=== PATIENT | female | born 1975 | race Caucasian/White ===

== ENCOUNTER → 2024-11-14 10:06 | Outpatient (REF) | payer BC, SELFPAY | LOC: WDC 10:06 | PROVIDERS: ATTENDING PHYSICIAN Family Medicine; REFERRING PHYSICIAN Specialist | DX: Z12.31 Encounter for screening mammogram for malignant neoplasm of breast (principal); Z01.818 Encounter for other preprocedural examination | CPT/HCPCS: 93005 ==

== ENCOUNTER 2025-01-19 06:24 | Day surgery (SDC) | payer BC, SELFPAY | END 2025-01-19 14:19 | disposition home or self-care (01) | LOC: GI 06:24 | PROVIDERS: ATTENDING PHYSICIAN Internal Medicine | DX: Z12.11 Encounter for screening for malignant neoplasm of colon (principal); D12.3 Benign neoplasm of transverse colon; D12.5 Benign neoplasm of sigmoid colon; K63.5 Polyp of colon; K63.89 Other specified diseases of intestine; K64.9 Unspecified hemorrhoids; Z86.0101 Personal history of adenomatous and serrated colon polyps | CPT/HCPCS: 45385; 45380; 88305 ==

== ENCOUNTER 2025-04-18 06:36 | Inpatient (IN) | payer BC, SELFPAY ==
[2025-04-18] VITALS (8 sets, daily range): BP systolic 101–123; BP diastolic 56–91
[2025-04-18] MEDS: ZOFRAN 4 MG IV (04:09)
[2025-04-18 04:29] LABS: Hematocrit 40.9 % (37.0-47.0); Hemoglobin 13.3 g/dL (12.0-16.0); Mean Corp Hgb Conc. 32.5 g/dL (33.0-37.0); Mean Corpuscular Volume 89.1 fL (81.0-99.0); Nucleated Red Blood Cells % 0 %; Platelet Count 287 10^3/uL (130-400); Red Cell Dist. Width 13.9 % (11.5-14.5)
--- NOTE | 2025-04-18 04:36 | ED.GENMED ---
History of Present Illness
General
Chief Complaint: Abdominal Pain
Source: patient and spouse
Exam Limitations: none
Time Seen by Provider: 04/18/25 04:28
Nursing documentation reviewed up to this point in time: agreed with
History of Present Illness
History of Present Illness:
49-year-old female with no reported chronic medical issues presents to the ER with her for evaluation of abdominal pain. Patient reports that symptoms started on but did not become intense until this evening. She reports intense
pain in the epigastrium that radiates towards the right side. No clear triggering or relieving factors. She has had associated nausea with profuse nonbloody vomiting this evening. No diarrhea noted. No fever noted. No chest pain or breathing
issues. She has never had similar symptoms in the past. She denies any chronic medical issues and denies any prior surgeries. Her does note that she had some jam recently and wonders whether she could have food poisoning.
Past History
Past History
ED Past Medical History: None
ED Past Surgical History: None
Social History
Tobacco: Smoker
Personal:
Living: with family
Employment: Employed
Review of Systems
Review of Systems
All Other Systems: ROS reviewed and negative except as documented in HPI and ROS
Constitutional: Denies fever or chills
Respiratory: Denies trouble breathing
Cardiac: Denies chest pain
ABD/GI: Reports abdominal pain, nausea and vomiting; Denies diarrhea
: Denies dysuria or flank pain
Musculoskeletal: Denies neck pain
Neurological: Denies headache
Phy Exam
Physical Exam
Physical Exam:
General: Awake, alert, oriented x3; patient appears uncomfortable, crying
Head: Normocephalic, atraumatic
Eyes: Conjunctiva normal, sclera anicteric
Throat: Airway intact, handling secretions
Neck: Trachea midline, supple without meningismus
Lungs: Clear to auscultation bilaterally, no wheezing, rales, rhonchi
Heart: Regular rate and rhythm, no murmurs, gallops, or rubs
Abd: Soft, non distended, moderately tender in the upper abdomen
Neuro: Grossly intact
Skin: no rash in area of concern
Extremities: No edema in extremities, equal pulses in all extremities
Scores
Heart Failure Risk
Heart Failure Risk Score: Not Applicable
Heart Score for Chest Pain Patients
STEMI patient?: Not applicable
Withdrawal Assessment of Alcohol
Withdrawal Assessment Completed?: Not applicable
Course
Orders/Labs/Results
Orders:
Orders
04/18/25 03:43
Electrocardiogram (*1) Urgent
Reason for Study: Abdominal Pain
EKG- Treatment ONCE
IV Insert/Care/Rem.- Treatment PRN
Straight cath- Treatment ONCE
Urinalysis Reflex To Culture Urgent
Date Specimen was Collected: 04/18/25
Time Specimen was Collected: 03:43
04/18/25 04:08
Ondansetron Injectable [Zofran] 4 mg IV NOW STA
04/18/25 04:17
Complete Blood Count/With Diff Urgent
Comprehensive Metabolic Panel Urgent
HCG, Serum Qualitative Screen Urgent
Comment: ADD ON
Lipase Urgent
04/18/25 04:28
Add On- LAB Urgent
Tests Added?: hcg qual
HYDROmorphone [Dilaudid] 0.5 mg IV NOW STA
US Abdomen Complete/Upper Urgent
Comment:
Reason For Exam: upper abd pain, vomiting
04/18/25 04:29
0.9% Sodium Chloride 1000 ml [Nss] 1,000 ml IV BOLUS
04/18/25 04:35
HYDROmorphone [Dilaudid] 0.5 mg IV ONCE PRN
04/18/25 04:47
Troponin I Urgent
04/18/25 05:49
SURGICAL CONSULT Urgent
Consulting Provider: Mehul Salguero
Was physician already notified: Yes
Piperacillin/Tazo 3.375 Gram [Zosyn] 3.375 gram in 50 ml IV NOW
Abnormal Lab Results
04/18/25
04:17
MCHC 32.5 L g/dL
(33.0-37.0)
BUN 6 L mg/dl
(7-17)
Creatinine 0.5 L mg/dL
(0.6-1.0)
Glucose 137 H mg/dl
(70-99)
04/18/25 04:17
04/18/25 04:17
Vital Signs
Initial and Last Documented VS:
Initial Vital Signs
Pulse BP Pulse Ox
80 119/72 100
04/18/25 03:33 04/18/25 03:33 04/18/25 03:33
Last Documented Vital Signs
Pulse Resp BP Pulse Ox
59 18 104/91 99
04/18/25 05:30 04/18/25 05:30 04/18/25 04:26 04/18/25 05:30
MDM/Problems Addressed
Differential Diagnosis Includes:
Cholelithiasis, cholecystitis, pancreatitis, gastritis, enteritis, bowel obstruction, food poisoning, anginal equivalent
MDM/Problems Addressed:
49-year-old female presents for evaluation of upper abdominal pain with nausea and vomiting as described above. Vitals and exam as above. Plan to place an IV check labs including a CBC and a CMP. Check lipase. Will check an EKG and a troponin.
Send urinalysis. Will check upper abdominal ultrasound. Pain control and antiemetics, IV fluids. Reassess after the above.
Labs reviewed: CBC shows no clinically significant abnormalities, CMP shows notably normal LFTs. Lipase is normal. Troponin undetectable. Abdominal ultrasound reviewed and shows cholelithiasis with gallbladder wall thickening and pericholecystic
fluid concerning for acute cholecystitis. Plan to cover with antibiotics. Discussed case with general surgery who will consult. Discussed case with hospitalist for admission.
*Radiology
Radiology exam reviewed: radiology read reviewed
*Pulse Oximetry
SaO2: 100
Oxygen Mode of Delivery: Room air
Patient hypoxic: no (100%)
*EKG
Interpreted by ED Provider?: Yes
Heart Rate: 64
Rate: normal
Rhythm: sinus
[place]: normal axis
Interval: normal interval
QRS Pattern: normal QRS
Ischemia: no ischemia
*Critical Care Note
Total Time (30-74mins, 75-104mins- exclusive of procedures): Not Applicable
Data Reviewed
Source: patient and spouse
Patient Management
Discussion with other providers: Hospitalist (Discussed with hospitalist) and Air Director (Discussed with general surgery)
Escalation/DeEscalation of care consider admission/obs:
Admission indicated
ED Attending Note
-
Portions of this chart may have been created with voice recognition software.� Occasional wrong word or��sound alike� substitutions may have occurred due to the inherent limitations of voice recognition software.
Discharge Plan
Departure
Patient Disposition: Admit
Date of Disposition: 04/18/25
Time of Disposition: 05:52
Admit to doctor: Quinten
Presentation/result/management discussed w/ accepting MD/DO: Hospitalist
Discharge Problem:
Acute cholecystitis
Prescriptions:
No Action
amoxicillin-pot clavulanate 1 TABLET tablet
1 tab PO Q12 Qty: 13 0RF
Interventions
Interventions:
*Risk Screen - Suicide Last Done: 04/18/25 03:34
*General Assessment Last Done: 04/18/25 03:34
*Neglect/Abuse Screening Last Done: 04/18/25 03:34
*ED- Fall Risk Assessment Last Done: 04/18/25 03:34
*ED COVID-19 Vaccine History Last Done: 04/18/25 04:59
*ED Influenza Vaccine History Last Done: 04/18/25 04:59
CB-Cbakxy-Lsbafdgfsw Assessment Last Done: 04/18/25 05:00
Discharge Date and Time
Print Language: ERITREAN
[2025-04-18] MEDS: NSS 1000 IV ×3 (04:40→23:05)
[2025-04-18] MEDS: DILAUDID 0.5 MG IV ×3 (04:40→09:23)
[2025-04-18 04:47] LABS: HCG, Serum Qualitative Screen Negative
[2025-04-18 04:51] LABS: ALT (SGPT) 13 U/L (0-35); AST (SGOT) 20 U/L (14-36); Albumin 4.6 g/dl (3.5-5.0); Alkaline Phosphatase 53 U/L (38-126); Blood Urea Nitrogen 6 mg/dl (7-17); Calcium 9.9 mg/dl (8.4-10.2); Carbon Dioxide 24 mmol/L (22-30); Chloride 106 mmol/L (98-107); Glucose 137 mg/dl (70-99); Lipase 77 U/L (23-300); Potassium 4.4 mmol/L (3.5-5.1); Sodium 137 mmol/L (135-145); Total Protein 7.5 g/dl (6.3-8.2); eGFR > 60.00
[2025-04-18 05:34] LABS: Troponin I < 0.012 ng/ml
[2025-04-18] MEDS: ZOSYN 50 IV ×4 (06:03→23:05)
--- NOTE | 2025-04-18 06:27 | HPS.HSE ---
Family Physician
-
Family Physician: * NONE
Chief Complaint
-
Abd pain
History of Present Illness
Patient is a 49y F with no significant PMH who presents to ED complaining of abdominal pain. Patient states that she had some mild epigastric pain on evening. This resolved without intervention. This evening around 8PM she had return
of the pain. This time it did not resolve and increased throughout the night. She developed N/V with multiple episodes of non-bloody emesis. She noted extremely severe pain around 2AM and presented to the ED for further evaluation.
No fevers / chills. No chest pain / dyspnea.
No prior h/o similar symptoms.
Medical History
Past Medical History
Past Medical History: Reports None
Past Surgical History: Reports Other
Additional Past Surgical History:
Knee Arthroscopy / Meniscus Surgery
Social History
Tobacco: Former Smoker (Quit smoking 5 years ago.)
Alcohol: Occasional
Drug: None
Personal:
Living: With Family
Family History
Family History: Not pertinent
Allergies / Home Medications
Allergies reflects when Allergies were last updated in [facility].
Home Medications with original date entered in [facility]
Allergy/Medication List:
Allergies
Allergy/AdvReac Type Severity Reaction Status Date / Time
NKA - No Known Allergies Allergy Unknown Uncoded 04/18/25 03:34
Home Medications
atorvastatin 10 mg tablet 10 mg PO HS 04/18/25
cyanocobalamin (vitamin B-12) 1,000 mcg tablet 1,000 mcg PO DAILY 04/18/25
Review of Systems
-
History Source: Patient
A 12 point ROS was completed and negative except as noted: Yes
Constitutional: Denies Fever or Chills
Respiratory: Denies Cough or Trouble Breathing
Cardiac: Denies Chest Pain or Palpitations
Abdomen/GI: Reports Abdominal Pain, Nausea and Vomiting; Denies Diarrhea
: Denies Dysuria or Frequency
Musculoskeletal: Denies Joint Pain or Edema
Neurological: Denies Dizzy or Headache
Psych: Denies Depression or Anxiety
Physical Exam
Vital Signs
Vital Signs
Pulse Resp BP Pulse Ox
59 18 104/91 99
04/18/25 05:30 04/18/25 05:30 04/18/25 04:26 04/18/25 05:30
Physical Exam
General: Other (49y F in mild distress due to pain.)
HEENT: Moist mucous membranes
Respiratory: Clear; No Wheezes, Rales or Rhonchi
Cardiac: S1/S2 and Regular Rhythm; No Murmur
GI: Other (Soft, pos BS. Pos tenderness and voluntary guarding in RUQ.)
Musculoskeletal: No Clubbing, No Cyanosis and No Edema
Neuro: AO x 3
Laboratory Results
-
04/18/25 04:17
04/18/25 04:17
Laboratory Results
Total Bilirubin 0.6 mg/dl (0.2-1.3) 04/18/25 04:17
AST 20 U/L (14-36) 04/18/25 04:17
ALT 13 U/L (0-35) 04/18/25 04:17
Alkaline Phosphatase 53 U/L (38-126) 04/18/25 04:17
Troponin I < 0.012 ng/ml 04/18/25 04:47
Lipase 77 U/L (23-300) 04/18/25 04:17
Impression/Plan
-
A/P: Patient is a 49y F with no significant PMH who presents to ED complaining of abdominal pain and N/V.
Acute Calculous Cholecystitis
- Admit for further evaluation and treatment.
- NPO, IVFs, IV abx, pain control.
- Surgery consulted for further recommendations / probable cholecystectomy.
DVT Prophylaxis: SCDs
Code Status: Full
[2025-04-18] MEDS: PROTONIX IV 40 MG IV (09:22)
[2025-04-18] MEDS: NSS (PRESERVATIVE FREE) 10 ML IV (09:23)
--- NOTE | 2025-04-18 10:38 | PTCARENOTE ---
Report given to Juhi on south
--- NOTE | 2025-04-18 10:41 | CM ---
CM reviewed chart, patient for transfer to second floor.
Patient asleep, IA completed by daughter who is bedside.
Patient is a 49 year old Female with no significant PMH who presents to ED complaining of abdominal pain.
Patient resides with spouse in a multiple story home, a few steps to enter home, bedroom on second floor.
Patient is independent with ADLs/IADLs, denies VN/SNF hx.
ANAHY Cordova, Pharmacy [facility], confirms prescription coverage.
Denies insecurities at home.
Care ongoing, likely home no needs.
Plan; home no needs
--- NOTE | 2025-04-18 12:24 | CON.GS ---
Consultation
-
Date/Time Consultation Performed: 04/18/25914
Medical History
-
Chief Complaint: Abdominal pain
History of Present Illness:
49 yo female with a h/o hyperlipidemia who presents with recurrent epigastric pain which initially began two nights ago but resolved. Yesterday evening the discomfort returned and persisted causing her to present to the ED for evaluation. She notes
some nausea with vomiting as well with pain radiating now into the RUQ. On exam, there is mild epigastric tenderness present. She denies fevers or chills. She denies active nausea.
Past Medical History
Past Medical History: Hypercholesterolemia
Past Surgical History: Orthopedic (knee arthroscopy/meniscus) and Other (colonoscopy 2022)
Social History
Tobacco: Former Smoker
Alcohol: Occasional
Family History
Family History: Reviewed & Not Pertinent
Allergies / Home Medications
Allergy/AdvReac Type Severity Reaction Status Date / Time
No Known Allergies Allergy Unverified 04/18/25 07:32
�Medication �Instructions �Recorded �Confirmed �Type
atorvastatin 10 mg tablet 10 mg PO HS 04/18/25 04/18/25 History
cyanocobalamin (vitamin B-12) 1,000 mcg PO DAILY 04/18/25 04/18/25 History
1,000 mcg tablet
Review of Systems
-
History Source: Patient and Family
All other systems: Negative unless noted
A 10 point review of systems was completed, and was negative except as per HPI.
Physical Exam
Vital Signs
Temp Pulse Resp BP Pulse Ox
98.6 F 71 14 102/60 100
04/18/25 08:05 04/18/25 08:05 04/18/25 08:05 04/18/25 08:05 04/18/25 08:05
04/17/25 04/18/25 04/19/25
06:59 06:59 06:59
Actual Weight 90.2 kg 90.2 kg
Lab Results
04/18/25 04:17
04/18/25 04:17
WBC 9.5 10^3/uL (4.8-10.8) 04/18/25 04:17
Hgb 13.3 g/dL (12.0-16.0) 04/18/25 04:17
Hct 40.9 % (37.0-47.0) 04/18/25 04:17
Plt Count 287 10^3/uL (130-400) 04/18/25 04:17
Abs Immat Gran (auto) 0.0 10^3/uL (0-0.05) 04/18/25 04:17
Neutrophils % 68.8 % (42.2-75.2) 04/18/25 04:17
Physical Exam
General: Well Developed and Well Nourished
HEENT: Moist Mucous Membranes
GI: Soft, Non Distended and Tender (epigastric)
Skin: Warm and Dry
Neuro: Awake, Alert and AO x 3
Psych: Calm
Data Reviewed
-
Ultrasound: Image Personally Visualized and interpreted, Report Reviewed by me, Discussed with Physician, Discussed with Nurse, Discussed with Patient and Discussed with Family
Labs: Labs Reviewed by me, Discussed with Physician, Discussed with Nurse, Discussed with Patient and Discussed with Family
Old Records: Reviewed
Assessment / Plan
-
49 yo female presenting with recurrent epigastric/ruq pain for the past 2 evenings with more persistent symptoms today. No leukocytosis. No fevers. VSS. Normal LFT's. US imaging with minimal gallbladder wall thickening and questionable
pericholecystic fluid with cholelithiasis. Mild epigastric tenderness on exam into the RUQ, negative heath's. Suspect biliary colic although US equivocal for possible ACC.
Will plan for surgery this admission for cholecystectomy.
Plan:
Continue empiric abx
Ok for Clears
Analgesics/antiemetics as needed
Continue IVF
Will add on to the OR schedule for Sunday
SCDs for VTE ppx
--- NOTE | 2025-04-18 13:21 | W.PN.UPDATE ---
Update Note
Progress Note Update
Patient without any active, nonsurgical, medical problems. The patient was transferred to Dr. Salguero's service.
[2025-04-18] MEDS: TYLENOL 650 MG PO ×2 (13:53→17:48)
[2025-04-18 16:54] LABS: Urine Character Clear (Clear)
[2025-04-18 17:04] LABS: Urine Squamous Cell 16-20 /LPF (Few); Urine White Cell 0-2 /HPF (0-5)
[2025-04-19] MEDS: ZOSYN 50 IV ×4 (05:31→23:11)
[2025-04-19] MEDS: TYLENOL 650 MG PO (05:34)
[2025-04-19 06:00] VITALS: BMI 27.3
[2025-04-19 06:49] LABS: Hematocrit 36.4 % (37.0-47.0); Hemoglobin 11.9 g/dL (12.0-16.0); Mean Corp Hgb Conc. 32.7 g/dL (33.0-37.0); Mean Corpuscular Volume 90.5 fL (81.0-99.0); Platelet Count 232 10^3/uL (130-400); Red Cell Dist. Width 14.0 % (11.5-14.5)
[2025-04-19 07:10] VITALS: BP 94/62
[2025-04-19] MEDS: PROTONIX IV 40 MG IV (07:24)
[2025-04-19] MEDS: NSS (PRESERVATIVE FREE) 10 ML IV (07:24)
[2025-04-19 07:30] LABS: ALT (SGPT) 12 U/L (0-35); AST (SGOT) 19 U/L (14-36); Albumin 3.6 g/dl (3.5-5.0); Alkaline Phosphatase 59 U/L (38-126); Blood Urea Nitrogen 5 mg/dl (7-17); Calcium 8.5 mg/dl (8.4-10.2); Carbon Dioxide 26 mmol/L (22-30); Chloride 106 mmol/L (98-107); Estimated Creatinine Clearance 121 ml/min; Glucose 95 mg/dl (70-99); Potassium 3.8 mmol/L (3.5-5.1); Sodium 138 mmol/L (135-145); Total Protein 6.2 g/dl (6.3-8.2); eGFR > 60.00
--- NOTE | 2025-04-19 11:27 | W.PN.GS2 ---
Today's Communication / Plan
-
OR tomorrow
Assessment / Plan
-
49 yo female presenting with biliary colic vs more likely ACC given persistent discomfort.
AFVSS
No leukocytosis, LFT's WNL
Tolerating clears
Plan:
Ok to continue clears, NPO after MN for OR
Lap jason with IOC in the am
Analgesics prn
Continue IV abx
IVF once NPO
SCDs for VTE ppx
Subjective Data
-
Date of Service: April 19, 2025
Pt seen and examined at bedside with Dr. Salguero. Denies n/v. tolerating clears. Improving pain overall.
Objective Data
-
Intake and Output
04/18/25 04/19/25 04/20/25
06:59 06:59 06:59
Intake Total 2600 / 2600
Balance 2600 / 2600
Intake:
Oral fluids 500 / 500
IV fluids (Total) 2000 / 1999
IV piggybacks 100 / 100
Other:
Number of approximated MODERATE 2
amounts of urine
Vital Signs
Temp Pulse Resp BP Pulse Ox
99.2 F 80 18 94/62 97
04/19/25 07:10 04/19/25 07:10 04/19/25 07:10 04/19/25 07:10 04/19/25 07:10
Lab Results
04/19/25 05:32
04/19/25 05:32
Calcium 8.5 mg/dl (8.4-10.2) 04/19/25 05:32
Total Bilirubin 1.0 mg/dl (0.2-1.3) 04/19/25 05:32
Direct Bilirubin 0.1 mg/dl (0.0-0.4) 04/19/25 05:32
AST 19 U/L (14-36) 04/19/25 05:32
ALT 12 U/L (0-35) 04/19/25 05:32
Alkaline Phosphatase 59 U/L (38-126) 04/19/25 05:32
Total Protein 6.2 g/dl (6.3-8.2) L 04/19/25 05:32
Albumin 3.6 g/dl (3.5-5.0) 04/19/25 05:32
Physical Exam
-
NAD
ABD soft, epigastric/ruq tenderness, nd
[2025-04-19] MEDS: NSS 1000 IV (13:39)
[2025-04-19 16:39] VITALS: BP 108/62
[2025-04-19 23:25] VITALS: BP 90/56
[2025-04-20] VITALS (13 sets, daily range): BP systolic 96–141; BP diastolic 60–76
[2025-04-20] MEDS: NSS 1000 IV ×2 (01:47→17:37)
[2025-04-20] MEDS: ZOSYN 50 IV ×4 (05:04→23:04)
[2025-04-20] MEDS: PROTONIX IV 40 MG IV (08:14)
[2025-04-20] MEDS: NSS (PRESERVATIVE FREE) 10 ML IV (08:15)
[2025-04-20] MEDS: TYLENOL 650 MG PO (09:37)
--- NOTE | 2025-04-20 10:21 | W.SUR.PREOP ---
Pre-Operative Surgical Note
-
I have examined this patient prior to the performance of the scheduled procedure.
The patient's condition is unchanged from the time of the current History and
Physical and the patient is able to undergo the scheduled procedure.
--- NOTE | 2025-04-20 13:38 | W.IMMPOSTOP ---
Surgical Immed Post Op Note
-
Primary Surgeon: Sergey Chavez MD
Assisting Surgeon: None
Pre-op Diagnosis: Acute cholecystitis
Post-op Diagnosis: Same
Procedure Performed: Laparoscopic cholecystectomy with cholangiogram
Anesthesia Type: General
Specimen / Cultures: Gallbladder and contents
Estimated Blood Loss: 7 cc
Complications: None
Operative Findings: Acutely inflamed distended gallbladder with adhesions over the anterior surface which were carefully lysed with blunt and electrocautery dissection. Critical view of safety was obtained prior to a cholangiogram which
demonstrated normal biliary anatomy and no distal filling defects. Duct ligated with clips followed by 0 PDS Endoloop.
POST OP PLAN:
Imaging: None
Labs: Routine AM
Diet: Advance to Regular as tolerated
Analgesia: Tylenol 650mg q6 Kinsey, Dilaudid 0.5mg q2h PRN
Neuro/vascular checks: Per unit protocol
AC/AP: Hold Therapeutic AC, Ok for DVT PPx
Activity: Ad [place]
Wound/Incisions/Drains: Routine
Abx: Can continue antibiotics while admitted, can stop on discharge
Dispo: RNF, anticipate discharge home today versus tomorrow pending clinical course.
--- NOTE | 2025-04-20 13:40 | OR.RPT ---
Addendum entered and electronically signed by Sergey Chavez MD 04/23/25 09:07:
Date of operation should read '04/20/2025'
Addendum entered and electronically signed by Sergey Chavez MD 04/20/25 13:48:
Under procedure description:
At the end of the procedure, a large piece of Surgicel was placed over the fossa and fatty tissues that were previously adhesed to the gallbladder to ensure hemostasis.
Original Note:
Operative Report
Operative Report
Patient Name: Clarita Paredes
: 1975
Date of Operation: 04/28/2025
Preoperative Diagnosis: Acute cholecystitis
Postoperative Diagnosis: Same
Procedure(s):
Laparoscopic Cholecystectomy with Cholangiogram
Surgeon(s):
Dr. Chavez
World Travel Counselor(s):
NANCY Pro
LEBRON Muro
Anesthesia: General
Estimated Blood Loss: 7 cc
Urine Output: None
Drains/Lines/Implants: None
Specimens:
1. Gallbladder and contents
HPI/Surgical Indications:
This is a 49-year-old female who presents with postprandial right upper quadrant pain. Exam, labs and imaging are consistent with acute cholecystitis. Risks/Benefits/Alternatives were discussed at length, and the patient consented to proceed with
surgery.
Operative Findings: Acutely inflamed distended gallbladder with adhesions over the anterior surface which were carefully lysed with blunt and electrocautery dissection. Critical view of safety was obtained prior to a cholangiogram which
demonstrated normal biliary anatomy and no distal filling defects. Duct ligated with clips followed by 0 PDS Endoloop.
Procedure Description:
The patient was brought to the Operating Room and placed in the supine position with one arm tucked. Following uneventful induction of general endotracheal anesthesia, an orogastric tube was placed. The abdomen was prepped and draped in the usual
sterile fashion. A timeout was performed confirming the procedure, consent, and that IV antibiotics were infused and sequential compression devices were confirmed to be on. The abdomen was entered using a left subcostal Veress technique which
required a single pass followed by a 5 mm right upper quadrant Optiview trocar. Pneumoperitoneum to 15 mmHg pressure was obtained without difficulty and we confirmed that no injury had occurred during our entry. The patient was positioned in
reverse Trendelenberg and rotated with the right side up slightly. Two 5 mm trocars were then placed along the right subcostal margin, followed by a 12 mm port in the epigastrium. The gallbladder was notably inflamed and distended with overlying
adhesions which were carefully lysed with electrocautery and blunt dissection. Once the fundus was exposed a locking grasping forceps was placed on the fundus of the gallbladder where it was then retracted cephalad and to the right. Using
appropriate grasping instruments, the peritoneum overlying the triangle of Calot was incised and extended superiorly on both the anterior and posterior gallbladder robles. The lower third of the gallbladder was dissected off the cystic plate. The
cystic triangle was dissected until 2 and only 2 structures were seen entering the gallbladder, thus a critical view of safety was achieved. The cystic artery was clipped with 5 mm titanium clips and divided. The cystic duct was clipped high on the
gallbladder. A ductotomy was made and a cholangiocatheter on an Love clamp was inserted into the cystic duct. A C-arm was draped and brought into the field. An intra-operative cholangiogram was performed and was noted to have:
No filling defects in the biliary tree
No significant biliary dilation
Brisk flow of contrast into the duodenum
Normal biliary anatomy
The catheter was then removed and the cystic duct was controlled with a clip followed by 0 PDS Endoloop. After ensuring both the artery and duct were divided, the gallbladder was freed from the liver using electrocautery. There was some spillage
of bile from our ductotomy, but no spillage of stones. The gallbladder bed was inspected and excellent hemostasis was obtained. The gallbladder was extracted through the 12 mm trocar site using an endocatch bag without dilating the port site. The
abdomen was again irrigated and excellent hemostasis was assured. All remaining trocars were then removed and the pneumoperitoneum was evacuated. The 12 mm trocar site was closed using 0 PDS suture. All trocar sites were closed at the skin level
using 4-0 Monocryl followed by Dermabond. Overall, the patient tolerated the procedure well and was taken to the Recovery Room postoperatively in stable condition.
I was the attending physician and performed the procedure with assistance of the PA and student above. The assistance of NANCY Pro was required due to the complexity of the procedure. During the procedure Monica assisted with port placement,
tissue retraction, holding camera, and closure of the wound. I was present for all portions of the case, excluding skin closure.
Sergey Chavez MD
[2025-04-20] MEDS: ZOFRAN 4 MG IV (14:13)
[2025-04-20] MEDS: DILAUDID 0.25 MG IV (14:16)
--- NOTE | 2025-04-20 14:25 | CM ---
CM following re: discharge planning.
Reviewed pt's chart, met with pt.
Pt is POD# 1 s/p Laparoscopic Cholecystectomy with Cholangiogram. Continue supportive care.
D/C plan: home with anticipated no needs.
CM will follow with discharge plan updates as hospitalization progresses
[2025-04-20] MEDS: NSS IV (16:21)
[2025-04-21] MEDS: TYLENOL 650 MG PO ×2 (03:33→08:58)
[2025-04-21 03:47] VITALS: BP 104/70
[2025-04-21] MEDS: ZOSYN 50 IV (05:06)
--- NOTE | 2025-04-21 07:18 | W.PN.GS2 ---
Today's Communication / Plan
-
Dispo planning
Assessment / Plan
-
This is a 49-year-old female who presents with right upper quadrant pain found to have acute calculous cholecystitis. Postoperative day 1 from laparoscopic cholecystectomy with cholangiogram. Doing well, expected postoperative course.
Plan:
Will DC home today without antibiotics.
Time Spent
Total Time Spent with Patient (in minutes): 20
Subjective Data
-
Date of Service: April 21, 2025
Interval Events:
No acute events overnight. Slept well. Pain Controlled. Denies Nausea/Vomiting, +bowel function. Tolerating diet.
Objective Data
-
Intake and Output
04/20/25 04/21/25 04/22/25
06:59 06:59 06:59
Intake Total 1780 / 1780 2520 / 2520
Balance 1780 / 1780 2520 / 2520
Intake:
Oral fluids 720 / 720 1520 / 1520
IV fluids (Total) 960 / 960 900 / 900
Normosol 100 / 100
IV piggybacks 100 / 100 100 / 100
Other:
Number of approximated MODERATE 3 3
amounts of urine
Number of approximated LARGE 1
amounts of urine
Vital Signs
Temp Pulse Resp BP Pulse Ox
99.1 F 64 16 104/70 97
04/21/25 03:47 04/21/25 03:47 04/21/25 03:47 04/21/25 03:47 04/21/25 03:47
Lab Results
04/19/25 05:32
04/19/25 05:32
Calcium 8.5 mg/dl (8.4-10.2) 04/19/25 05:32
Total Bilirubin 1.0 mg/dl (0.2-1.3) 04/19/25 05:32
Direct Bilirubin 0.1 mg/dl (0.0-0.4) 04/19/25 05:32
AST 19 U/L (14-36) 04/19/25 05:32
ALT 12 U/L (0-35) 04/19/25 05:32
Alkaline Phosphatase 59 U/L (38-126) 04/19/25 05:32
Total Protein 6.2 g/dl (6.3-8.2) L 04/19/25 05:32
Albumin 3.6 g/dl (3.5-5.0) 04/19/25 05:32
Physical Exam
-
GENERAL/NEURO: Awake, Alert, no distress
CHEST: Unlabored breathing on RA
ABDOMEN: Soft, appropriately tender, Non-Distended, incisions clean dry and intact
Patient has a corcoran catheter: No
Patient has a central line: No
[2025-04-21] MEDS: PROTONIX IV 40 MG IV (08:54)
[2025-04-21] MEDS: NSS (PRESERVATIVE FREE) 10 ML IV (08:54)
[2025-04-21 09:00] VITALS: BP 104/64
--- NOTE | 2025-04-21 10:03 | CM ---
CM following re: discharge planning.
Reviewed pt's chart, met with pt.
Discharge order noted. Pt is aware and state her will transport home.
No after care VN needs identified.
D/C plan: home no needs to transport.
== END 2025-04-21 09:32 | disposition home or self-care (01) | DRG 419 ==
LOC: 2 SOUTH 06:36
PROVIDERS: ADMITTING PHYSICIAN Hospitalist; ATTENDING PHYSICIAN Surgery; EMERGENCY PHYSICIAN Emergency Medicine; FAMILY PHYSICIAN Family Medicine; OTHER PHYSICIAN Surgery
PROC: 0FT44ZZ Resection of Gallbladder, Percutaneous Endoscopic Approach (ICD-10-PCS; 2025-04-20)
PROC: BF502Z0 Other Imaging of Bile Ducts using Fluorescing Agent, Intraoperative (ICD-10-PCS; 2025-04-20)
DX: K81.0 Acute cholecystitis (principal); E78.00 Pure hypercholesterolemia, unspecified; Z87.891 Personal history of nicotine dependence; Z79.899 Other long term (current) drug therapy
CPT/HCPCS: 74300; 76000; 76700; 80053; 81003; 81015; 82248; 83690; 84484; 84703; 85025; 85027; 88304; 93005; 96361; 96374; 96375; 99285; A4300

== ENCOUNTER → 2025-06-17 11:11 | Outpatient (REF) | payer BC, SELFPAY | LOC: RAD 11:11 | PROVIDERS: ATTENDING PHYSICIAN Orthopaedic Surgery Adult Reconstructive Orthopaedic Surgery; FAMILY PHYSICIAN Family Medicine | DX: M25.561 Pain in right knee (principal) | CPT/HCPCS: 73700 ==